=== PATIENT | male | born 1945 | race Caucasian/White ===

== ENCOUNTER 2019-07-12 08:50 | Inpatient (IN) | payer OTHER ==
[~2019-07-12] VITALS: Ht 177.8 cm; Wt 50.5 kg
[2019-07-12] VITALS (8 sets, daily range): BP systolic 109–156; BP diastolic 36–73
[~2019-07-12 08:50] MED LIST: ASPIRIN ADULT L81 M2 PO; ASPIRIN81 M1 PO; AZITHROMYCIN500 M1 IV; BUSPIRONE10 MG PO; CEFTRIAXONE1 GM IJ; CHOLESTEROL PILL; IMDUR SA30 MG PO; LASIX20 MG PO; LASIX40 MG PO; LISINOPRIL5 MG PO; LOPRESSOR25 MG PO; METOPROLOL TART50 M1 PO; MUCINEX ER600 MG PO; NEURONTIN300 MG PO; SOLU-MEDRO40 MG/1 ML IV; TRAZODONE50 MG PO; VITAMIN D32000 UNI1 PO; ZOCOR40 MG PO; [UNRECOGNIZED DRUG - REMARK]
[2019-07-12 09:19] LABS: BASO % 0.3 % (0.0-1.0); EOS % 0.3 % (1.0-4.0); HEMATOCRIT 45.8 % (42.0-52.0); LYMPH # 0.8 10*3/uL (1.3-4.4); LYMPH % 5.2 % (27.0-41.0); MEAN CELL VOLUME 95.4 fl (80.0-94.0); MEAN CORPUSCULAR HGB 30.2 pg (27.0-31.0); MEAN CORPUSCULAR HGB CONC 31.7 g/dl (33.0-37.0); MEAN PLATELET VOLUME 10.1 fl (9.6-12.3); MONO # 1.4 10*3/uL (0.1-1.0); MONO % 9.6 % (3.0-9.0); NEUT # 12.5 10*3/uL (2.3-7.9); NEUT % 84.1 % (47.0-73.0); PLATELET COUNT AUTOMATED 259 10*3/uL (130-400); WHITE BLOOD COUNT 14.9 10*3/uL (4.8-10.8)
[2019-07-12 09:27] LABS: ACT PARTIAL THROMBO TIME 31.3 SECONDS (20.0-32.1); INTERNATIONAL NORM RATIO 1.1 (2.0-3.5)
[2019-07-12 09:34] LABS: ALBUMIN 2.7 gm/dl (3.1-4.5); ALKALINE PHOSPHATASE 66 U/L (45-117); BUN 23 mg/dl (7-24); CHLORIDE 102 mmol/L (98-107); CREATININE 1.36 mg/dL (0.70-1.30); POTASSIUM 4.5 mmol/L (3.5-5.1); SGOT/AST 18 IU/L (3-35); SGPT/ALT 22 U/L (12-78); SODIUM 138 mmol/L (136-145); TOTAL PROTEIN 7.1 gm/dL (6.4-8.2)
--- NOTE | 2019-07-12 10:08 | NUR ---
SITTING TRIPOD POSITION IN BED, PLEASANT AND NO NEW COMPLAINTS.
--- NOTE | 2019-07-12 10:28 | NUR ---
LYIING RT LATERALM IN BED, LIGHTS DIMMED, REPS EASY.
--- NOTE | 2019-07-12 12:00 | NUR ---
The assessment has been completed. SUMA ONEILL Time: A 73 year old ,GIO admitted to under services of LAURENT ARMIJO DO. Pt. arrived via ambulatory from ER. Chief complaint: INCREASING SHORTNESS OF BREATH OVER LAST SEVERAL DAYS. SUMA ONEILL
--- NOTE | 2019-07-12 12:15 | NUR ---
DR WHEELER NOTIFIED OF CRITICAL TROPONIN.
--- NOTE | 2019-07-12 12:48 | NUR ---
PER DR WHEELER STOP IV FLUIDS AT THIS TIME.
--- NOTE | 2019-07-12 14:47 | NUR ---
PT SITTING UP IN BED. PAMELA HOSE APPLIED TO L LEG. RESPS EASY AND NON LABORED AT THIS TIME. NO S/S OF DISTRESS. PT STILL LEANING ON TRAY TABLE BUT STATES THAT HE DOESNT FEEL SOB LIKE EARLIER. WILL CONTINUE TO MONITOR. CALL LIGHT WITHIN REACH.
--- NOTE | 2019-07-12 15:02 | NUR ---
DR WHEELER NOTIFIED OF TROPONIN OF 0.119
--- NOTE | 2019-07-12 15:50 | NUR ---
PT INSTRUCTED ON FLUTTER USE. GOOD PATIENT EFFORT. LEFT AT BEDSIDE, ENCOURAGED PATIENT TO USE ON HIS OWN. BBS CLEAR BUT VERY DIMINISHED, HR 74 RR 16. SPO2 99% ON 4.5L, DECREASED TO 3 L.
--- NOTE | 2019-07-12 15:54 | NUR ---
DR WHEELER IN TO SEE PT
--- NOTE | 2019-07-12 16:46 | NUR ---
DR FLORENCE NOTIFIED OF NEW CONSULT. STATES HE WILL CALL BACK ONCE HE SEES PTS CT
--- NOTE | 2019-07-12 17:00 | NUR ---
PER DR FLORENCE PT NEEDS MOVED TO A NEGATIVE PRESSURE ROOM, COVID-19 SWAB NEEDS PREFORMED, ADD FERRITIN/LDH AND D DIMER TO LABS AND CALL WITH RESULTS. ORDERS VERIFIED AND REPEATED BACK.
--- NOTE | 2019-07-12 18:05 | NUR ---
DR FLORENCE NOTIFIED OF LAB RESULTS.
--- NOTE | 2019-07-12 19:32 | NUR ---
PT. ANXIOUS, STATING HE HASNT SEEN A NURSE IN OVER 30MINUTES. STATED HE NEEDS THINGS. ADDRESSED PATIENTS CONCERNS AND EXPLAINED THE COVID ISOLATION WELL CHANGE OF SHIFT FOR NURSES. PT. CALMED. WALKER SUPPLIED PER PT REQUEST. HEP LOCK IN MANDY ASYMPT. LUNGS DIMINISHED BILAT, PULSE OX 95% ON 2L NC. ABDOMEN SOFAT, NONDISTENDED AND NROMO. 3-4+LEFT LOWER LEG EDEMA NOTED. PAMELA HOSE ON LEFT LEG. ALEXANDER CASTRO RN
--- NOTE | 2019-07-12 21:11 | NUR ---
PT. GIVEN NORCO AT 2044 FOR AGGITATION AND GENERALIZED ACHES AND PAINS.
--- NOTE | 2019-07-12 21:15 | NUR ---
PT. STATES SHORTNESS OF BREATH, PULSE OX 98% ON 2L NC. CALLED RESP FOR PRN BREATHING TREATMENT. NO DISTRESS NOTED.
--- NOTE | 2019-07-12 21:56 | NUR ---
PT. STATED NORCO MILDLY EFFECTIVE FOR ACHES AND PAINS.
[2019-07-13] VITALS: BP 130/50
--- NOTE | 2019-07-13 01:29 | NUR ---
NORCO ADMINISTERED FOR GENERALIZED DISCOMFORT/ANXIETY. WILL MONITOR AND REASSESS.
--- NOTE | 2019-07-13 02:03 | NUR ---
PATIENT ASLEEP AT THIS TIME. NO SIGNS OF DISCOMFORT OR DISTRESS.
[2019-07-13 06:52] LABS: BUN 29 mg/dl (7-24); CHLORIDE 100 mmol/L (98-107); CREATININE 1.37 mg/dL (0.70-1.30); POTASSIUM 4.7 mmol/L (3.5-5.1); SODIUM 137 mmol/L (136-145)
[2019-07-13 06:56] LABS: BASO % 0.3 % (0.0-1.0); EOS # 0.1 10*3/uL (0.0-0.4); EOS % 1.2 % (1.0-4.0); HEMATOCRIT 43.8 % (42.0-52.0); LYMPH # 1.3 10*3/uL (1.3-4.4); LYMPH % 10.9 % (27.0-41.0); MEAN CELL VOLUME 96.7 fl (80.0-94.0); MEAN CORPUSCULAR HGB 30.2 pg (27.0-31.0); MEAN CORPUSCULAR HGB CONC 31.3 g/dl (33.0-37.0); MEAN PLATELET VOLUME 10.5 fl (9.6-12.3); MONO # 1.5 10*3/uL (0.1-1.0); MONO % 12.8 % (3.0-9.0); NEUT # 8.6 10*3/uL (2.3-7.9); NEUT % 74.3 % (47.0-73.0); PLATELET COUNT AUTOMATED 240 10*3/uL (130-400); RED BLOOD COUNT 4.53 10*6/uL (4.50-5.90); RED CELL DISTRI WIDTH 12.1 % (0-14.5); WHITE BLOOD COUNT 11.6 10*3/uL (4.8-10.8)
[2019-07-13 08:00] VITALS: BP 110/51
--- NOTE | 2019-07-13 09:00 | NUR ---
Reimbursement Manager spoke to patient via phone. Patient states lives at home alone with his family checking in on him. There are 0 steps in the home. Physician: Dr. Juan Tsai Pharmacy: [facility] Home health services: none Patient's level of ADLs: INDEPENDENT Patient has working utilities: yes DME: wheelchair Follow-up physician's appointment after d/c: will be made by the hospitalist nurse director upon discharge Does patient want to access PORTAL?: no Discharge plan discussed with patient. He lives at home alone with his family checking in on him. He is independent in his ADLs and gets around in a wheelchair. Discussed home health care services and he is unsure of any home needs at this time. He states he does have trouble getting his groceries in at times. When asked if he has someone to help him. He states that he doesn't. When asked about his family. He states they are not able to help him. Discussed grocery delivery. He states that [facility] Tru[facility]illo is the only one that deliveries groceries and they are too expensive. 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 When medically stable he will be discharged to home. He states either his sister or his ex- will provide transportation on discharge. ANGY MELÉNDEZ
--- NOTE | 2019-07-13 10:53 | NUR ---
DR. FLROENCE WANTS TO CONTINUE CARDIAC MONITORING.
[2019-07-13 12:00] VITALS: BP 105/42
[2019-07-13 16:00] VITALS: BP 138/95
--- NOTE | 2019-07-13 19:32 | NUR ---
24 hour chart check complete.
--- NOTE | 2019-07-13 19:50 | NUR ---
PATIENT COMPLAINING OF SHORTNESS OF BREATH, IN TO ASSESS HIM AT THIS TIME. PULSE OX 92% ON 2L. PATIENT RESPIRATIONS 20. WHEEZES NOTED THROUGHOUT. ENCOURAGED PATIENT TO SLOW DOWN HIS BREATHING, IN THROUGH HIS NOSE AND OUT THROUGH HIS MOUTH. RESPIRATORY IN TO ADMINISTER BREATHING TREATMENT. PATIENT STATES THAT THIS "PROBABLY WON'T HELP". WILL CONTINUE TO MONITOR.
--- NOTE | 2019-07-13 19:59 | NUR ---
UNABLE TO ENTER PATIENTS ROOM UNTIL 2100 DUE TO ADMINISTRATION OF BREATHING TREATMENT. CHECKED ON PT VIA ANTEROOM AND HE IS NOW RESTING IN BED. RESPIRATIONS ARE MORE RELAXED. PATIENT APPEARS TO BE IN LESS DISTRESS. WILL MONITOR.
[2019-07-13 20:00] VITALS: BP 136/65
--- NOTE | 2019-07-13 21:24 | NUR ---
NORCO ADMINISTERED FOR PT C/O RIGHT SIDED RIBCAGE PAIN RATED 4/10. WILL CONTINUE TO MONITOR AND REASSESS.
--- NOTE | 2019-07-13 21:56 | NUR ---
IN TO REASSESS PATIENTS RESPIRATORY STATUS. PATIENTS PULSE OX IS 98% ON 2L AT THIS TIME AND HE STATES THAT HE FEELS "MUCH BETTER" AFTER THE BREATHING TREATMENT. PATIENT STATES THAT HE IS "FRUSTRATED BECAUSE HE FEELS LIKE NO ONE IS COMING IN TO CHECK ON HIM". HE ALSO STATES THAT "PATIENTS SHOULDN'T BE TREATED THIS WAY" AND THAT "ITS DEPRESSING". HE THINKS THAT WE "ARE IGNORING HIM". I SAT AND EXPLAINED TO THE PATIENT THAT HE IS IN PRECAUTIONS FOR COVID UNTIL HIS SWAB COMES BACK AND THAT WE ARE SUPPOSED TO BE IN THE ROOM MINIMALLY. I EXPLAINED THAT IF HE NEEDED ANYTHING THAT HE COULD USE HIS CALL LIGHT AND I WILL COME IN TO ASSIST HIM. HE WAS RECEPTIVE AND DISPLAYED UNDERSTANDING.
--- NOTE | 2019-07-13 22:24 | NUR ---
PT ASLEEP AT THIS TIME. NORCO APPEARS TO BE EFFECTIVE.
[2019-07-14] VITALS: BP 148/53
[2019-07-14 06:24] LABS: MEAN CELL VOLUME 95.6 fl (80.0-94.0); MEAN CORPUSCULAR HGB 29.8 pg (27.0-31.0); MEAN CORPUSCULAR HGB CONC 31.2 g/dl (33.0-37.0); MEAN PLATELET VOLUME 10.3 fl (9.6-12.3); PLATELET COUNT AUTOMATED 264 10*3/uL (130-400); RED BLOOD COUNT 4.29 10*6/uL (4.50-5.90); WHITE BLOOD COUNT 12.2 10*3/uL (4.8-10.8)
[2019-07-14 06:45] LABS: BUN 33 mg/dl (7-24); CHLORIDE 101 mmol/L (98-107); CREATININE 1.32 mg/dL (0.70-1.30); POTASSIUM 5.2 mmol/L (3.5-5.1); SODIUM 136 mmol/L (136-145)
[2019-07-14 06:58] LABS: TOTAL CELLS COUNTED 100 #CELLS
[2019-07-14 06:59] LABS: PLATELET SUFFICIENCY NORMAL (NORMAL); POLYCHROMASIA SLIGHT
--- NOTE | 2019-07-14 07:00 | NUR ---
REPORT RECEIVED FROM BLANCO SANTIZO. PT SITTING UP IN BED AT THIS TIME. O2 INTACT; NO SOB NOTED AT REST. NO COMPLAINTS VOICED AT THIS TIME. CALL LIGHT IN REACH
[2019-07-14 08:00] VITALS: BP 136/58
--- NOTE | 2019-07-14 08:44 | NUR ---
DR. HARVEY NOTIFIED OF PT REQUEST TO DISCONTINUE BLOOD SUGAR CHECKS PT IS NOT A DIABETIC. DR. HARVEY OKAYED ORDER TO DC.
--- NOTE | 2019-07-14 09:30 | NUR ---
REPORT GIVEN TO DR. FLORENCE, NOTIFIED OF PT REQUEST FOR ANXIETY MEDS. ORDER RECEIVED, AND INCREASED DOSE OF LASIX. NO OTHER ORDERS AT THIS TIME.
--- NOTE | 2019-07-14 09:44 | NUR ---
PER DR. FLORENCE AND DR. HARVEY PT PCR AND RAPID NEGATIVE, OKAY TO COME OUT OF ISOLATION
--- NOTE | 2019-07-14 09:55 | NUR ---
XANAX GIVEN PER ORDER FOR COMPLAINTS OF ANXIETY. WILL MONITOR
[2019-07-14 10:19] LABS: ABG BASE EXCESS 6.8 mmol/L (-2.0-2.0); ARTERIAL BLOOD GAS PH 7.402 (7.35-7.45)
--- NOTE | 2019-07-14 10:45 | NUR ---
PER PT, "THAT REALLY HELPED MY ANXIETY"
[2019-07-14 12:00] VITALS: BP 102/47
--- NOTE | 2019-07-14 12:56 | NUR ---
CONSULT CALLED TO DR. VINES OFFICE
--- NOTE | 2019-07-14 13:00 | NUR ---
DR. ELLIS IN TO SEE PT
--- NOTE | 2019-07-14 15:00 | NUR ---
PT SITTING ON SIDE OF BED, NO DISTRESS NOTED. CALL LIGHT IN REACH
[2019-07-14 16:00] VITALS: BP 122/56
--- NOTE | 2019-07-14 17:00 | NUR ---
PT LYING IN BED. NO COMPLAINTS VOICED.
--- NOTE | 2019-07-14 19:21 | NUR ---
24 HR chart check completed.
[2019-07-14 20:00] VITALS: BP 123/59
--- NOTE | 2019-07-14 22:04 | NUR ---
PRN XANAX GIVEN FOR PT COMPLAINTS OF ANXIETY. CALL LIGHT WITHIN REACH, WILL MONITOR
--- NOTE | 2019-07-14 23:04 | NUR ---
PRN XANAX APPEARS EFFECTIVE, PT SLEEPING
[2019-07-15] VITALS: BP 121/62
--- NOTE | 2019-07-15 01:40 | NUR ---
PATIENT SLEEPING, NO SIGNS OF DISTRESS. RESPIRATIONS EASY,NON LABORED. BED IN LOWEST POSITION,CALL LIGHT WITHIN REACH. WILL CONTINUE TO MONITOR.
[2019-07-15 06:20] LABS: HEMATOCRIT 38.8 % (42.0-52.0); MEAN CELL VOLUME 94.9 fl (80.0-94.0); MEAN CORPUSCULAR HGB 30.8 pg (27.0-31.0); MEAN CORPUSCULAR HGB CONC 32.5 g/dl (33.0-37.0); MEAN PLATELET VOLUME 10.2 fl (9.6-12.3); PLATELET COUNT AUTOMATED 279 10*3/uL (130-400); RED BLOOD COUNT 4.09 10*6/uL (4.50-5.90); WHITE BLOOD COUNT 12.5 10*3/uL (4.8-10.8)
[2019-07-15 06:47] LABS: BUN 32 mg/dl (7-24); CHLORIDE 98 mmol/L (98-107); CREATININE 1.34 mg/dL (0.70-1.30); SODIUM 137 mmol/L (136-145)
[2019-07-15 06:49] LABS: POTASSIUM 4.2 mmol/L (3.5-5.1)
[2019-07-15 06:54] LABS: TOTAL CELLS COUNTED 100 #CELLS
[2019-07-15 06:55] LABS: PLATELET SUFFICIENCY NORMAL (NORMAL)
[2019-07-15 08:00] VITALS: BP 123/60
--- NOTE | 2019-07-15 08:30 | NUR ---
Medical Secretary Teacher in to see patient. No new needs or request at this time. He denies any home needs. When medically stable he will be discharged to home.
--- NOTE | 2019-07-15 10:45 | NUR ---
Per multidisciplinary discharge planning meeting plan is to discharge patient to home tomorrow.
--- NOTE | 2019-07-15 11:30 | NUR ---
INFORMED CONSENT SIGNED FOR LEXISCAN STRESS TEST WITH DR. ELLIS. RESTING EKG LBBB WITH PAC'S. HR 86, BP 122/60. PULSE OX 98% ON 2L/NC AND BREATH SOUNDS CLEAR BUT DEMINISHED ON RIGHT SIDE. COMPLETED ONE MINUTE OF LEXISCAN PROTOCOL RECEIVING LEXISCAN 0.4MG OVER 10 SECONDS. RARE PVC'S NOTED WITH NONDIAGNOSTIC ST CHANGES. PT C/O SOB. LAST RECOVERY HR 75, BP 100/50. WAITING NUCLEAR SCANNING IN STABLE CONDITION.
[2019-07-15 12:00] VITALS: BP 108/47
[2019-07-15 16:00] VITALS: BP 115/55
--- NOTE | 2019-07-15 17:28 | NUR ---
PT IN RESTROOM HAVING DIFFICULTY WITH HIS PANTS, PT VISIBLE UPSET AND HEART RATE ELEVATED. [place] ASSISTED WITH PANTS AND HELPED TO BED, PRN XANAX GIVEN PER ORDER D/T AGGITATION
--- NOTE | 2019-07-15 17:50 | NUR ---
NOTIFIED OF ELEVATED HEART RATE AND FREQUENT PVCS. AND BLOOD PRESSURE OF 70/32/ PT C/O OF INCREASED SOB AND DIZZINESS
--- NOTE | 2019-07-15 18:15 | NUR ---
NOTIFIED OF NEW ONSET AFIB, HYPOTENSION AND HEART RATE. NEW ORDER TO TREAT HYPOTENSION WITH BOLUS AND CALL WITH BP RESULTS ONCE FINISHED, IF BP DOES NOT CORRECT AND HEART RATE REMAINS TACHY PT MAY NEED TRANSFERRED TO ICU.
--- NOTE | 2019-07-15 18:45 | NUR ---
NOTIFIED OF BP 90/50, SECOND BOLUS INFUSING. PT ALSO WISHES TO CHANGE CODE STATUS TO DNRCCA, PER SHE WILL DISCUSS WITH PT
[2019-07-15 19:10] LABS: BUN 32 mg/dl (7-24); CHLORIDE 101 mmol/L (98-107); POTASSIUM 4.2 mmol/L (3.5-5.1); SODIUM 139 mmol/L (136-145)
--- NOTE | 2019-07-15 19:16 | NUR ---
NOTIFIED OF UPDATE BP 110/52 HR 84 AFIB NNO CONTINUE TO MONITOR
[2019-07-15 19:17] VITALS: BP 110/52
--- NOTE | 2019-07-15 21:23 | NUR ---
PATIENT CONVERTED BACK TO NSR. DR. CASH NOTIFIED.
--- NOTE | 2019-07-15 21:40 | NUR ---
MEDICATED WITH TYLENOL FOR C/O PHANTOM PAIN.
--- NOTE | 2019-07-15 23:32 | NUR ---
PATIENT FEELING SOB, RESPIRATIONS 24. CALLED RESPIRATORY FOR PRN BREATHING TX.
--- NOTE | 2019-07-15 23:48 | NUR ---
PATIENT RECEIVING BREATHING TX.
--- NOTE | 2019-07-15 23:59 | NUR ---
PER DIGITAL ART DIRECTOR, PATIENT LOOKS TO BE IN AFIB. EKG ORDERED TO CONFIRM.
[2019-07-16] VITALS: BP 101/43
[2019-07-16 07:27] LABS: BUN 32 mg/dl (7-24); CHLORIDE 102 mmol/L (98-107); CREATININE 1.33 mg/dL (0.70-1.30); POTASSIUM 4.7 mmol/L (3.5-5.1); SODIUM 139 mmol/L (136-145)
[2019-07-16 07:29] LABS: BASO # 0.1 10*3/uL (0.0-0.1); BASO % 0.5 % (0.0-1.0); EOS # 0.2 10*3/uL (0.0-0.4); EOS % 2.2 % (1.0-4.0); HEMATOCRIT 37.3 % (42.0-52.0); LYMPH # 1.1 10*3/uL (1.3-4.4); LYMPH % 9.7 % (27.0-41.0); MEAN CELL VOLUME 97.1 fl (80.0-94.0); MEAN CORPUSCULAR HGB 29.7 pg (27.0-31.0); MEAN CORPUSCULAR HGB CONC 30.6 g/dl (33.0-37.0); MEAN PLATELET VOLUME 10.2 fl (9.6-12.3); MONO # 1.5 10*3/uL (0.1-1.0); MONO % 13.4 % (3.0-9.0); NEUT # 8.1 10*3/uL (2.3-7.9); NEUT % 73.6 % (47.0-73.0); PLATELET COUNT AUTOMATED 284 10*3/uL (130-400); RED BLOOD COUNT 3.84 10*6/uL (4.50-5.90); RED CELL DISTRI WIDTH 12.1 % (0-14.5)
--- NOTE | 2019-07-16 08:20 | NUR ---
Bobbin Disker in to see patient. Discussed physician follow up on discharge. He states he normally follows up with Dr. Tsai's office in [place] and sees the nurse practitioner. He lives on [address] and would like to follow with a physician that is closer to his home. Discussed the resident clinic and those would be some of the same physicians that see him while he is in the hospital. He is agreeable. He states when he lived in [place] it wasn't a big deal then he would go to [facility] but since he has moved to [place] when he calls 911 they bring him here. Hospitalist nurse director notified. When medically stable he will be discharged to home.
[2019-07-16 08:23] LABS: PLATELET SUFFICIENCY NORMAL (NORMAL)
[2019-07-16 12:00] VITALS: BP 113/52
[2019-07-16 16:00] VITALS: BP 120/63
[2019-07-16 20:00] VITALS: BP 140/61
[2019-07-17] VITALS: BP 129/87
--- NOTE | 2019-07-17 03:53 | NUR ---
NOTIFIED DR. FELDMAN OF [address] OF [facility]. PATIENT ASYMPTOMATIC. WILL CONTINUE TO MONITOR.
[2019-07-17 04:19] LABS: HEMATOCRIT 37.8 % (42.0-52.0); MEAN CELL VOLUME 96.4 fl (80.0-94.0); MEAN CORPUSCULAR HGB 29.8 pg (27.0-31.0); MEAN PLATELET VOLUME 10.2 fl (9.6-12.3); PLATELET COUNT AUTOMATED 302 10*3/uL (130-400); RED BLOOD COUNT 3.92 10*6/uL (4.50-5.90); RED CELL DISTRI WIDTH 12.1 % (0-14.5); WHITE BLOOD COUNT 12.9 10*3/uL (4.8-10.8)
[2019-07-17 04:30] LABS: BUN 30 mg/dl (7-24); CHLORIDE 101 mmol/L (98-107); CREATININE 1.29 mg/dL (0.70-1.30); POTASSIUM 4.8 mmol/L (3.5-5.1); SODIUM 139 mmol/L (136-145)
[2019-07-17 04:41] LABS: TOTAL CELLS COUNTED 100 #CELLS
[2019-07-17 04:42] LABS: PLATELET SUFFICIENCY NORMAL (NORMAL)
[2019-07-17 05:10] VITALS: BP 133/54
--- NOTE | 2019-07-17 05:21 | NUR ---
PATIENT SLEEPING, NO SIGNS OF DISTRESS. RESPIRATIONS EASY, NON LABORED. WILL CONTINUE TO MONITOR.
--- NOTE | 2019-07-17 06:00 | NUR ---
PATIENT HAD 19 BEAT OF VTACH PER RAMP AND CARGO SUPERVISOR. NOTIFIED DR. FELDMAN.
--- NOTE | 2019-07-17 06:10 | NUR ---
DR. TAMEZ CALLED BACK. STATED TO CALL DR. ELLIS AND LET HIM KNOW.
--- NOTE | 2019-07-17 06:26 | NUR ---
SPOKE WITH DR. ELLIS. TOLD TO ORDER TROPOL XL BID INSTEAD OF DAILY AND GIVE FIRST DOSE NOW. STATED HE WOULD LOOK AT THE STRIPS WHEN HE GOT TO THE HOSPITAL. WILL CONTINUE TO MONITOR.
[2019-07-17 08:00] VITALS: BP 136/58
[2019-07-17 12:00] VITALS: BP 122/56
[2019-07-17 16:00] VITALS: BP 110/65
--- NOTE | 2019-07-17 19:20 | NUR ---
REPORT RECEIVED FROM PRISCILLA SANTIZO. PT SITTING ON SIDE OF BED AT THIS TIME. VOICES NO COMPLAINTS. O2 INTACT. CALL LIGHT IN REACH
[2019-07-17 20:00] VITALS: BP 144/50
--- NOTE | 2019-07-17 21:00 | NUR ---
PT SITTING ON SIDE OF BED AT THIS TIME. O2 INTACT. CALL LIGHT IN REACH
--- NOTE | 2019-07-17 22:11 | NUR ---
PT LYING IN BED WATCHING TV AT THIS TIME. CALL LIGHT IN REACH
--- NOTE | 2019-07-17 23:09 | NUR ---
TYLENOL GIVEN PER ORDER FOR COMPLAINTS OF LEFT LEG PAIN. WILL MONITOR.
--- NOTE | 2019-07-17 23:55 | NUR ---
TYLENOL APPEARS EFFECTIVE, PT SLEEPING
[2019-07-18] VITALS: BP 119/67
--- NOTE | 2019-07-18 02:00 | NUR ---
PT IS SLEEPING AT THIS TIME. CALL LIGHT IN REACH
[2019-07-18 06:13] LABS: HEMATOCRIT 37.7 % (42.0-52.0); MEAN CELL VOLUME 94.7 fl (80.0-94.0); MEAN CORPUSCULAR HGB 29.9 pg (27.0-31.0); MEAN CORPUSCULAR HGB CONC 31.6 g/dl (33.0-37.0); MEAN PLATELET VOLUME 10.5 fl (9.6-12.3); PLATELET COUNT AUTOMATED 328 10*3/uL (130-400); RED BLOOD COUNT 3.98 10*6/uL (4.50-5.90); RED CELL DISTRI WIDTH 11.9 % (0-14.5); WHITE BLOOD COUNT 12.5 10*3/uL (4.8-10.8)
[2019-07-18 06:45] LABS: ALBUMIN 2.2 gm/dl (3.1-4.5); ALKALINE PHOSPHATASE 54 U/L (45-117); BUN 26 mg/dl (7-24); CHLORIDE 99 mmol/L (98-107); CREATININE 1.21 mg/dL (0.70-1.30); POTASSIUM 4.1 mmol/L (3.5-5.1); SGOT/AST 52 IU/L (3-35); SGPT/ALT 83 U/L (12-78); SODIUM 135 mmol/L (136-145); TOTAL PROTEIN 6.4 gm/dL (6.4-8.2)
[2019-07-18 07:10] LABS: TOTAL CELLS COUNTED 100 #CELLS
[2019-07-18 07:11] LABS: PLATELET SUFFICIENCY NORMAL (NORMAL)
--- NOTE | 2019-07-18 08:00 | NUR ---
IN TO ROOM. PATIENT AWAKE, ALERT AND ORIENTED. PLEASANT AND COOPERATIVE WITH ASSESSMENT. NO STATED COMPLAINTS. NO SOB NOTED ON 3.5L NC. BED IN LOWEST LOCKED POSITION AND CALL LIGHT WITHIN REACH. WILL CONTINUE TO MONITOR.
[2019-07-18 12:00] VITALS: BP 144/57
[2019-07-18] MEDS ORDERED: ALDACTONE25 MG PO (12:06)
[2019-07-18] MEDS ORDERED: ASPIRIN ADULT L81 M2 PO (12:06)
[2019-07-18] MEDS ORDERED: METOPROLOL SUCC25 M2 PO (12:06)
[2019-07-18] MEDS ORDERED: XARELTO15 M1 PO (12:06)
[2019-07-18] MEDS ORDERED: FUROSEMIDE40 MG PO (12:06)
--- NOTE | 2019-07-18 12:55 | NUR ---
HOME O2 ASSESSMENT: RA REST: SPO2 93% RA AMBULATION: SPO2 85% 2 L NC AMBULATION: SPO2 93% PT REQUIRES 2 L NC WITH AMBULATION BP 114/77 ANDREY 5 RR 20'S
--- NOTE | 2019-07-18 14:48 | NUR ---
WHILE TALKING TO PATIENT REGARDING DISCHARGE, HE VERBALIZED CONCERNS REGARDING GOING HOME, WHERE HE LIVES ALONE. PT STATES HE FEELS WEEK AND STILL VERY SHORT OF BREATH. DR. MARAVILLA CONTACTED AND DISCHARGE POSTPONED. MESSAGE SENT TO MATERIALS PLANNER REGARDING PLACEMENT. BED IN LOWEST LOCKED POSITION AND CALL LIGHT WITHIN REACH. WILL CONTINUE TO MONITOR.
[2019-07-18 16:00] VITALS: BP 148/70
--- NOTE | 2019-07-18 19:20 | NUR ---
REPORT RECEIVED FROM MARVA SANTIZO. PT SLEEPING AT THIS TIME. NO S/S OF DISTRESS, O2 INTACT. CALL LIGHT IN REACH
[2019-07-18 20:00] VITALS: BP 120/54
--- NOTE | 2019-07-18 22:52 | NUR ---
PT MEDICATED WITH XANAX PER ORDER FOR COMPLAINTS OF RESTLESSNESS/ANXIETY. WILL MONITOR EFFECTIVENESS.
--- NOTE | 2019-07-18 23:30 | NUR ---
XANAX APPEARS EFFECTIVE. PT SLEEPING
[2019-07-19] VITALS: BP 128/60
--- NOTE | 2019-07-19 00:49 | NUR ---
PT AWAKE AT THIS TIME. PT COMPLAINING THAT XANAX ISNT HELPING HIM STAY ASLEEP. PT WANTS SLEEPING PILL. CALLED DR. DE LA CRUZ REGARDING REQUEST. ORDER FOR RESTORIL RECEIVED.
--- NOTE | 2019-07-19 00:59 | NUR ---
RESTORIL GIVEN PER ORDER FOR COMPLAINTS OF INSOMNIA. WILL MONITOR
--- NOTE | 2019-07-19 01:45 | NUR ---
RESTORIL APPEARS EFFECTIVE. PT SLEEPING AT THIS TIME.
--- NOTE | 2019-07-19 05:04 | NUR ---
24 HR chart check completed.
--- NOTE | 2019-07-19 05:39 | NUR ---
IN TO SEE PT. REQUESTING BREATHING TREATMENT, RESPIRATORY NOTIFIED.
--- NOTE | 2019-07-19 08:30 | NUR ---
IN TO ROOM. PT STATES HE HAS AN UPSET STOMACH. QUESTIONED ABOUT SYMPTOMS AND PT REQUESTS SOMETHING FOR ACID REFLUX. DR. HARVEY NOTIFIED AND ORDERS OBTAINED AND ENTERED. NO OTHER STATED COMPLAINTS AT THIS TIME. DENIES PAIN. NO S/S OF DISTRESS OR SOB. NASAL CANNULA INTACT, RESPIRATIONS ARE EASY AND REGULAR. BED IN LOWEST LOCKED POSITION AND CALL LIGHT WITHIN REACH. WILL CONTINUE TO MONITOR.
--- NOTE | 2019-07-19 09:00 | NUR ---
Shop Assistant in to see patient. He is sitting on the edge of his bed without distress noted. Discussed over the weekend he was afraid to be discharged to home where he is alone. He agreed. Discussed short term rehab and he is agreeable. When provided with a list of facilities he just wanted to go with a facility that took his insurance. roundhouse worker notified and following.
--- NOTE | 2019-07-19 10:33 | NUR ---
PATIENT NOW WANTS SNF PLACEMENT. WIND [employer]JECTS SUPERVISOR FAXED NEW REFERRAL TO [facility].
[2019-07-19 12:00] VITALS: BP 128/37
--- NOTE | 2019-07-19 14:00 | NUR ---
Occupational Therapy evaluation completed on 4E with full evaluation to follow. Recommend occupational therapy per plan of care and SNF vs. home with HH pending pt progression upone discharge. Thank you for this referral. Chanda Ramos OTR/L
[2019-07-19 16:00] VITALS: BP 106/88
--- NOTE | 2019-07-19 19:30 | NUR ---
REPORT RECEIVED. PT WATCHING TV. CALL LIGHT IN REACH
[2019-07-19 20:00] VITALS: BP 115/46
--- NOTE | 2019-07-19 20:49 | NUR ---
PT MEDICATED WITH XANAX FOR COMPLAINTS OF ANXIETY. WILL MONITOR EFFECTIVENESS
--- NOTE | 2019-07-19 21:30 | NUR ---
XANAX APPEARS EFFECTIVE, PT SLEEPING AT THIS TIME.
[2019-07-20] VITALS: BP 112/52
--- NOTE | 2019-07-20 02:11 | NUR ---
TYLENOL GIVEN PER ORDER FOR COMPLAINTS OF LEFT LEG PAIN. WILL MONITOR
--- NOTE | 2019-07-20 03:00 | NUR ---
TYLENOL APPEARS EFFECTIVE, PT SLEEPING.
[2019-07-20 05:45] LABS: BUN 33 mg/dl (7-24); CHLORIDE 96 mmol/L (98-107); CREATININE 1.33 mg/dL (0.70-1.30); POTASSIUM 4.4 mmol/L (3.5-5.1); SODIUM 134 mmol/L (136-145)
[2019-07-20 06:04] LABS: HEMATOCRIT 38.5 % (42.0-52.0); MEAN CELL VOLUME 94.8 fl (80.0-94.0); MEAN CORPUSCULAR HGB 29.8 pg (27.0-31.0); MEAN CORPUSCULAR HGB CONC 31.4 g/dl (33.0-37.0); MEAN PLATELET VOLUME 10.6 fl (9.6-12.3); PLATELET COUNT AUTOMATED 353 10*3/uL (130-400); RED BLOOD COUNT 4.06 10*6/uL (4.50-5.90); RED CELL DISTRI WIDTH 11.9 % (0-14.5); WHITE BLOOD COUNT 13.2 10*3/uL (4.8-10.8)
[2019-07-20 06:36] LABS: BASOPHILS 1 % (0-1); TOTAL CELLS COUNTED 100 #CELLS
[2019-07-20 06:37] LABS: PLATELET SUFFICIENCY NORMAL (NORMAL); POLYCHROMASIA SLIGHT; STOMATOCYTE FEW
[2019-07-20 06:38] LABS: TOXIC GRANULATION SLIGHT
[2019-07-20 08:00] VITALS: BP 122/64
--- NOTE | 2019-07-20 09:00 | NUR ---
Computer Typesetter Keyliner in to see patient. No new needs or request at this time. sheetmetal worker following for SNF referrals.
--- NOTE | 2019-07-20 10:00 | NUR ---
PATIENT RESTING IN BED A TTHIS TIME. ON O2 @ 2L VIA NC. LUNGS VERY DIMINISHED. EDEMA NOTED TO THE LLE, 2+ PITTING. DENIES ANY NEEDS AT THIS TIME, ENCOURAGED TO USE CALL LIGHT WHEN NEEDED.
--- NOTE | 2019-07-20 11:26 | NUR ---
NEED PT EVAL TO COMPLETE REFERRAL AND TO START PRECERT. [facility] EMAIL SENT THIS MORNING 07/20/2019.
[2019-07-20 12:00] VITALS: BP 117/56
--- NOTE | 2019-07-20 12:44 | NUR ---
Physical Therapy evaluation completed on 4th floor with full evaluation to follow. Recommend physical therapy per plan of care and SNF upon discharge as pt live alone with no family to assist him. Pt is now wearing 2L 02 NC which is new to him. Decreased tolerance to activity requiring assist to manipulate 02 line for safety. 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 Thank you for this referral. Ratna Joel PT
--- NOTE | 2019-07-20 13:10 | NUR ---
GRIEF COUNSELLOR FAXED EVALS AND UPDATES TO [facility]. [facility] IS STILL REVIEWING CLINICALS.
--- NOTE | 2019-07-20 13:46 | NUR ---
OT NOTE Pt was seen this P.M. 1:1 for 26 minute OT session. Upon arrival pt was supine in bed. Pt identified by name and and had no complaints at this time. Pt presented to therapy with continuous 2L-O2 via NC which he remained on throughout the entire session. Pt's resting SpO2 94% and heart rate 70 bpm. Pt transferred supine to sit EOB with supervision. While sitting EOB pt donned L sock with supervision. Pt completed multiple sit to stand transfers from bed level with SBA for safety and use of w/w for UE support. Challenged pt's static standing tolerance needed for increased I in self care tasks and functional transfers, pt was able to tolerate aprox 4 minutes before sitting due to fatigue and feeling SOB, SpO2 reading 92%. After a seated rest break pt then completed functional mobility to the bathroom with Liz for assist with O2 line management/safety. Pt was educated on O2 line management and safety as this is new to the pt, he verbalized understanding and presented with fair carry over. Once arriving to the bathroom pt required a seated rest break due to fatigue and feeling SOB, SpO2 90% and heart rate 81 bpm. There pt was educated on energy conservation and breathing techniques for enhanced safety and increased I. After returning to the EOB pt sat while completing grooming task consisting of washing his face and completing oral care after set up. Pt was left sitting upright on the EOB with call light in hand, tray table in place, and phone in reach. Continue with POC as able. IMTIAZ Renteria
[2019-07-20 16:00] VITALS: BP 112/49
--- NOTE | 2019-07-20 19:30 | NUR ---
REPORT RECEIVED FROM VINEET SANTIZO. PT LYING IN BED AT THIS TIME. VOICES NO COMPLAINTS, CALL LIGHT IN REACH
[2019-07-20 20:00] VITALS: BP 112/48
--- NOTE | 2019-07-20 21:36 | NUR ---
XANAX GIVEN FOR COMPLAINTS OF ANXIETY. TYLENOL ALSO GIVEN FOR COMPLAINTS OF LEFT LEG PAIN. WILL MONITOR EFFECTIVENESS OF THESE MEDICATIONS
--- NOTE | 2019-07-20 22:25 | NUR ---
TYLENOL AND XANAX APPEAR EFFECTIVE. PT SLEEPING AT THIS TIME. O2 INTACT. CALL LIGHT IN REACH
[2019-07-21] VITALS: BP 147/56
--- NOTE | 2019-07-21 00:30 | NUR ---
PT SLEEPING AT THIS TIME. O2 INTACT
--- NOTE | 2019-07-21 05:37 | NUR ---
TYLENOL GIVEN PER ORDER FOR COMPLAINTS OF LOWER BACK PAIN. WILL MONITOR EFFECTIVENESS
[2019-07-21 06:08] LABS: HEMATOCRIT 40.4 % (42.0-52.0); MEAN CELL VOLUME 96.2 fl (80.0-94.0); MEAN CORPUSCULAR HGB 29.5 pg (27.0-31.0); MEAN CORPUSCULAR HGB CONC 30.7 g/dl (33.0-37.0); MEAN PLATELET VOLUME 10.7 fl (9.6-12.3); PLATELET COUNT AUTOMATED 371 10*3/uL (130-400); RED CELL DISTRI WIDTH 11.9 % (0-14.5); WHITE BLOOD COUNT 13.6 10*3/uL (4.8-10.8)
[2019-07-21 06:10] LABS: BUN 36 mg/dl (7-24); CHLORIDE 96 mmol/L (98-107); CREATININE 1.26 mg/dL (0.70-1.30); POTASSIUM 3.9 mmol/L (3.5-5.1); SODIUM 135 mmol/L (136-145)
--- NOTE | 2019-07-21 06:30 | NUR ---
TYLENOL APPEARS EFFECTIVE, PT SLEEPING
[2019-07-21 07:13] LABS: PLATELET SUFFICIENCY NORMAL (NORMAL); TOTAL CELLS COUNTED 100 #CELLS
--- NOTE | 2019-07-21 08:05 | NUR ---
[facility]ERT FOR [facility] HAS BEEN STARTED.
--- NOTE | 2019-07-21 08:46 | NUR ---
PRECERT HAS BEEN OBTAINED FOR PATIENT TO GO TO [facility]. WILL NOTIFY RN HOSPITALIST COORDINATOR LEEANNA AND MASON TENDER RESTORATION LABOR.
--- NOTE | 2019-07-21 09:00 | NUR ---
MEDICATED WITH PRN PO XANAX FOR ANXIETY.
--- NOTE | 2019-07-21 09:15 | NUR ---
PHYSICAL THERAPY Patient seen this am 1;1 for therapy vist and was resting supine in bed upon therapist arrival. Patient identified by name / and presented with continuos O2-2L via NC. Patient recorded SpO2 96%, HR 70 bpm prior to tranfer supine to sit EOB with CGA. Patient perfomred several sit to stand transfers with use of walker standing support secondary to R side AKA. Patient reports non use of R Prothesis at home due to prper fit issues and limited financial means to remedy the situation. Patient able to ambulate 15'x 2, wh walker, CGA, demonstrating 3 pt gait pattern with use of extended O2 hose. Patient needed v/c to to improve safe navigaiton to avoid stepping on, getting tangled up in or tripping on hose during gait ex and returned to EOB sit with increased SOB / fatigue. Patient received v/c for purse lip breathing technique recording SpO2 88%, HR 97 bpm. Patient returned to WFL's after brief seated rest and remained EOB sit with call light, tray table and telephone. Will continue per POC as tolerated, total treatment time 14 minutes. Elvin Ramachandran, FISHERIES BIOLOGIST
--- NOTE | 2019-07-21 09:21 | NUR ---
TURN SUPERVISOR COMPLETED HENS
--- NOTE | 2019-07-21 09:23 | NUR ---
Notified Dr. Walton patient has auth to go to [facility] when medically stable.
--- NOTE | 2019-07-21 09:40 | NUR ---
OT NOTE Pt was seen this A.M. 1:1 for 25 minute OT session. Upon arrival pt was supine in bed. Pt identified by name and and had no complaints at this time. Pt presented to therapy with continuous 2L-O2 via NC which he remained on throughout the entire session. Pt's resting SpO2 was 96% and heart rate 78 bpm. Pt transferred supine to sit EOB with supervision. Sit to stand completed from bed level with SBA followed by functional mobility to the bathroom and back with SBA, this session pt presented with fair safety of O2 line management. After returning to the EOB pt's SpO2 reading 88% and heart rate 103 bpm. Pt was educated on breathing techniques and correcting his posture, after aprox 60 seconds SpO2 raised to 93% and heart rate 92 bpm. Challenged pt's static standing tolerance needed for increased I in self care tasks and functional transfers, pt was able to tolerate aprox 5 minutes at a time before sitting due to fatigue. Also challenged pt's dynamic standing balance while weight shifting, crossing midline, and reaching over all planes and pt was able to maintain F- standing balance. Pt was left sitting upright on the EOB with call light in hand, tray table in place, and phone in reach. Continue with POC as able. ATILIO Renteria/Vida
[2019-07-21] MEDS ORDERED: OMEPRAZOLE40 MG PO (10:28)
[2019-07-21 12:00] VITALS: BP 137/61
--- NOTE | 2019-07-21 12:50 | NUR ---
LINING MECHANIC SPOKE WITH DARLYN WELLS ABOUT PATIENT DISCHARGE. LINING MECHANIC SPOKE WITH [facility]. THEY ARE ABLE TO TRANSPORT THE PATIENT TODAY BETWEEN 3:30 AND 4PM. LINING MECHANIC NOTIFIED DARLYN WELLS OF THIS. LINING MECHANIC SPOKE WITH THE PATIENT AND EXPLAINED THIS TO HIM. THE PATIENT PROVIDED A NEW NUMBER FOR [facility] [phone]. LINING MECHANIC LEFT MESSAGE EXPLAINING PATIENTS DISCHARGE AND RETURN CALL NUMBER IF NEEDED.
--- NOTE | 2019-07-21 13:09 | NUR ---
PREPARING PATIENT FOR DISCHARGE TO [facility] BY THEIR TRANSPORT SERVICE AT 3:30PM TODAY. Discharge instructions reviewed with patient. Patient receptive and verbalizes understanding. Follow-up care arranged. Written instructions given to patient. PRISCILLA ZHU
[2019-07-21 16:00] VITALS: BP 131/80
--- NOTE | 2019-07-21 16:23 | NUR ---
REPORT CALLED TO RECEIVING NURSE AT [facility]. PATIENT AWAITING TRANSPORT TO THE FACILITY, WHO WILL RECEIVE HIM AT THE ER ENTRANCE FOR VAN TRANSPORTATION.
--- NOTE | 2019-07-21 16:50 | NUR ---
PATIENT DISCHARGED TO FRONT ER LOBBY BY WHEELCHAIR, ACCOMPANIED BY [facility], FOR TRANSPORT TO [facility] AT THIS TIME.
--- NOTE | 2019-07-22 07:41 | NUR ---
OCCUPATIONAL THERAPY CO-SIGN I approve of the Occupational Therapy notes written above. JACOBO ROBIN, OTR/L
--- NOTE | 2019-07-22 08:06 | NUR ---
PHYSICAL THERAPY CO-SIGN I approve of the Physical Therapy notes written above. Ratna Joel PT
== END 2019-07-21 16:50 | disposition other institution (70) | DRG 871 ==
LOC: ED 08:50 → 4E 11:16 → EDHOLD 11:16 → 4E 11:21
PROVIDERS: Emergency Medicine; Internal Medicine; Internal Medicine Critical Care Medicine; Student in an Organized Health Care Education/Training Program; ADMIT Family Medicine
DX: A41.9 Sepsis, unspecified organism (principal); E43 Unspecified severe protein-calorie malnutrition; I50.23 Acute on chronic systolic (congestive) heart failure; I26.99 Other pulmonary embolism without acute cor pulmonale; J18.9 Pneumonia, unspecified organism; I13.0 Hypertensive heart and chronic kidney disease with heart failure and stage 1 through stage 4 chronic kidney disease, or unspecified chronic kidney disease; Z68.1 Body mass index [BMI] 19.9 or less, adult; I42.9 Cardiomyopathy, unspecified; I47.2 Ventricular tachycardia; J43.9 Emphysema, unspecified; Z20.828 Contact with and (suspected) exposure to other viral communicable diseases; R65.20 Severe sepsis without septic shock; N18.3 Chronic kidney disease, stage 3 (moderate); R79.89 Other specified abnormal findings of blood chemistry; F17.210 Nicotine dependence, cigarettes, uncomplicated; D75.89 Other specified diseases of blood and blood-forming organs; E83.41 Hypermagnesemia; E78.5 Hyperlipidemia, unspecified; I73.9 Peripheral vascular disease, unspecified; R91.8 Other nonspecific abnormal finding of lung field; I48.0 Paroxysmal atrial fibrillation; K21.9 Gastro-esophageal reflux disease without esophagitis; Z71.6 Tobacco abuse counseling; I25.2 Old myocardial infarction; Z95.5 Presence of coronary angioplasty implant and graft; Z82.0 Family history of epilepsy and other diseases of the nervous system; Z79.899 Other long term (current) drug therapy

== ENCOUNTER 2019-08-02 22:44 | Inpatient (IN) | payer OTHER ==
[~2019-08-02] VITALS: Ht 177.8 cm; Wt 53.2 kg
[~2019-08-02 22:44] MED LIST changes: +ALDACTONE25 MG PO; +FUROSEMIDE40 MG PO; +METOPROLOL SUCC25 M2 PO; +OMEPRAZOLE40 MG PO; +XARELTO15 M1 PO
[2019-08-02 22:49] VITALS: BP 160/48
--- NOTE | 2019-08-02 23:08 | NUR ---
PLACED ON BIPAP 18/6, 24, 35%, VT 900, SpO2 96% PER DR. MOHAN ORDER. 9ML DUONEB TREATMENT GIVEN THROUGH T-PIECE.
[2019-08-02 23:20] LABS: HEMATOCRIT 35.8 % (42.0-52.0); MEAN CELL VOLUME 97.5 fl (80.0-94.0); MEAN CORPUSCULAR HGB 30.2 pg (27.0-31.0); MEAN PLATELET VOLUME 10.2 fl (9.6-12.3); PLATELET COUNT AUTOMATED 373 10*3/uL (130-400); RED BLOOD COUNT 3.67 10*6/uL (4.50-5.90); RED CELL DISTRI WIDTH 12.3 % (0-14.5); WHITE BLOOD COUNT 14.7 10*3/uL (4.8-10.8)
[2019-08-02 23:29] VITALS: BP 115/56
[2019-08-02 23:29] LABS: INTERNATIONAL NORM RATIO 1.1 (2.0-3.5)
[2019-08-02 23:36] LABS: ALBUMIN 2.5 gm/dl (3.1-4.5); CREATININE 1.63 mg/dL (0.70-1.30); POTASSIUM 4.9 mmol/L (3.5-5.1); TOTAL PROTEIN 7.2 gm/dL (6.4-8.2)
[2019-08-02 23:37] LABS: TROPONIN I 0.139 ng/ml (<0.045)
[2019-08-02 23:41] LABS: PLATELET SUFFICIENCY NORMAL (NORMAL); TOTAL CELLS COUNTED 100 #CELLS
[2019-08-03] VITALS (8 sets, daily range): BP systolic 107–166; BP diastolic 59–71
[2019-08-03 01:09] LABS: ABG BASE EXCESS 10.2 mmol/L (-2.0-2.0); ARTERIAL BLOOD GAS PH 7.372 (7.35-7.45)
--- NOTE | 2019-08-03 02:00 | NUR ---
A 73, admitted to , under the services of ANI Bateman DO with a diagnosis of RESP FAILURE, HYPOXIA, COPD EXACERBATION. Chief complaint is SOB. Patient arrived via ambulance from ER. Monitor applied. Initial assessment completed. Vital signs taken and recorded. ANI BATEMAN DO notified of admission to the unit. Orders received. See assessment for past medical history, medications and allergies. Patient and/or family oriented to unit. [facility] visitation policy reviewed. Clothing/patient valuable form completed. JERSEY VALENTIN
[2019-08-03] MEDS ORDERED: LASIX20 MG PO (02:20)
[2019-08-03] MEDS ORDERED: NEURONTIN300 MG PO (02:22)
[2019-08-03] MEDS ORDERED: MIRTAZAPINE15 M2 PO (02:22)
[2019-08-03] MEDS ORDERED: Ipratropium Brom3 ML INH (02:24)
[2019-08-03] MEDS ORDERED: WIXELA 250-501 EACH INH (02:25)
[2019-08-03] MEDS ORDERED: COLACE100 MG PO (02:27)
[2019-08-03] MEDS ORDERED: OMNICEF300 MG PO (02:28)
--- NOTE | 2019-08-03 02:39 | NUR ---
DR. MITCHELL NOTIFIED OF PT'S MED REC UTD AND T.O. GIVEN TO CONTINUE BIPAP 28/07.
--- NOTE | 2019-08-03 04:39 | NUR ---
PT TAKEN OFF OF BIPAP PER HIS REQUEST AND O2 APPLIED.
[2019-08-03 05:45] LABS: ALBUMIN 2.3 gm/dl (3.1-4.5); CREATININE 1.58 mg/dL (0.70-1.30); POTASSIUM 4.2 mmol/L (3.5-5.1); TOTAL PROTEIN 6.8 gm/dL (6.4-8.2)
[2019-08-03 05:50] LABS: TROPONIN I 0.132 ng/ml (<0.045)
--- NOTE | 2019-08-03 05:53 | NUR ---
DR. MITCHELL NOTIFIED OF CRITICAL TROPONIN.
--- NOTE | 2019-08-03 05:56 | NUR ---
Dr. FLORENCE consulted for COPD EXACERBATION, BIPAP, ACUTE ON CHRONIC RESP FAILURE.. JERSEY VALENTIN
[2019-08-03 06:11] LABS: HEMATOCRIT 34.7 % (42.0-52.0); MEAN CELL VOLUME 96.4 fl (80.0-94.0); MEAN CORPUSCULAR HGB 29.4 pg (27.0-31.0); MEAN CORPUSCULAR HGB CONC 30.5 g/dl (33.0-37.0); WHITE BLOOD COUNT 15.9 10*3/uL (4.8-10.8)
[2019-08-03 06:12] LABS: MEAN PLATELET VOLUME 10.6 fl (9.6-12.3); PLATELET COUNT AUTOMATED 367 10*3/uL (130-400); RED CELL DISTRI WIDTH 12.3 % (0-14.5)
[2019-08-03 06:40] LABS: PLATELET SUFFICIENCY NORMAL (NORMAL); POLYCHROMASIA SLIGHT; TOTAL CELLS COUNTED 100 #CELLS; TOXIC GRANULATION SLIGHT
--- NOTE | 2019-08-03 08:47 | NUR ---
PATIENT PRESENTS FROM [facility]. PATIENT ONLY HAS 8 FULL SNF DAYS LEFT THEN WILL BE INTO HIS COPAY DAYS. PER ABIGAIL-[facility] PATIENT WANTED TO BE HOME WITHIN THAT TIME FRAME. IF PATIENT WERE TO DISCHARGE HOME INSTEAD OF RETURNING TO [facility], ABIGAIL STATED THE PATIENT WILL NEED OXYGEN, NEBULIZER, AND HHC. WILL NOTIFY THE SECRETARY BOARD OF COMMISSIONERS.
--- NOTE | 2019-08-03 11:19 | NUR ---
Program Engagement Director in to see patient. Discussed returning to [facility] for continued therapy or to return home with home health care. Patient states he would like to return to [facility]. powder worker and hospitalist nurse director notified.
--- NOTE | 2019-08-03 11:30 | NUR ---
RESPIRATORY TO THE FLOOR TO DRAW ABG.
[2019-08-03 11:49] LABS: ABG BASE EXCESS 9.5 mmol/L (-2.0-2.0); ARTERIAL BLOOD GAS PH 7.396 (7.35-7.45)
--- NOTE | 2019-08-03 13:20 | NUR ---
DR. FLORENCE NOTIFIED OF ABG RESULT.
--- NOTE | 2019-08-03 20:00 | NUR ---
PATIENT IS AAOX3 RESTING IN BED WATCHING TV. RESPERS ARE EASY AND REGULAR. ASSESSMENT IS COMPLETE WITH NO S/S OF DISTRESS NOTED AT THIS TIME. PATIENT C/O ANXIETY. BED IS LOW, LOCKED, AND CALL LIGHT IS WITHIN REACH. WILL CONTINUE TO MONITOR, SEE INTERVENTIONS.
--- NOTE | 2019-08-03 20:07 | NUR ---
ONE TIME DOSE OF ATIVAN GIVEN ORDERED. PATIENT TOLERATED WELL. CALL LIGHT IS WITHIN REACH, WILL CONTINUE TO MONITOR.
--- NOTE | 2019-08-03 20:20 | NUR ---
PATIENT DYSPNIC AT REST. HS MEDICATIONS GIVEN EARLY AND PLACED ON BIPAP PER ORDER. CALL LIGHT IS WITHIN REACH. WILL CONTINUE TO MONITOR.
--- NOTE | 2019-08-03 21:07 | NUR ---
ATIVAN EFFECTIVE. PATIENT IS SLEEPING WITH EASY AND REGULAR RESPERS ON BIPAP. CALL LIGHT IS WITHIN REACH.
--- NOTE | 2019-08-03 23:00 | NUR ---
PATIENT OFF BIPAP, NASAL CANNULA APPLIED. CALL LIGHT IS WITHIN REACH.
[2019-08-04] VITALS: BP 159/70
--- NOTE | 2019-08-04 02:54 | NUR ---
CHART CHECK COMPLETE.
--- NOTE | 2019-08-04 04:06 | NUR ---
PATIENT SLEEPING WITH EASY AND REGULAR RESPERS. CALL LIGHT IS WITHIN REACH.
[2019-08-04 06:23] LABS: BASO % 0.1 % (0.0-1.0); HEMATOCRIT 35.2 % (42.0-52.0); LYMPH # 0.7 10*3/uL (1.3-4.4); LYMPH % 4.2 % (27.0-41.0); MEAN CORPUSCULAR HGB 29.5 pg (27.0-31.0); MEAN CORPUSCULAR HGB CONC 30.4 g/dl (33.0-37.0); MONO # 1.3 10*3/uL (0.1-1.0); MONO % 8.5 % (3.0-9.0); NEUT # 13.4 10*3/uL (2.3-7.9); NEUT % 86.4 % (47.0-73.0); PLATELET COUNT AUTOMATED 362 10*3/uL (130-400); RED BLOOD COUNT 3.63 10*6/uL (4.50-5.90); RED CELL DISTRI WIDTH 12.5 % (0-14.5); WHITE BLOOD COUNT 15.5 10*3/uL (4.8-10.8)
[2019-08-04 06:56] LABS: CREATININE 1.45 mg/dL (0.70-1.30); POTASSIUM 4.6 mmol/L (3.5-5.1)
--- NOTE | 2019-08-04 08:15 | NUR ---
Patient Resource Coordinator in to see patient. No new needs or request at this time. He plans on returning to [facility] for finish out his therapy days. rack worker following.
--- NOTE | 2019-08-04 10:10 | NUR ---
PRECERT IS NEEDED FOR THE PATIENT TO RETURN TO [facility].
--- NOTE | 2019-08-04 11:14 | NUR ---
DR. GUTIÉRREZ INFORMED OF PATIENTS HR.
--- NOTE | 2019-08-04 11:17 | NUR ---
PT. OFF BIPAP PLACED ON 4L NC
[2019-08-04 12:00] VITALS: BP 133/74
--- NOTE | 2019-08-04 15:03 | NUR ---
REPORT RECIEVED FROM PREVIOUS RN.INITIAL NURSING ASSESSMENT COMPLETED.PT VOICES NO NEEDS.RESPS EASY ON 4LNC.RESTING IN BED WATCHING TV. NO DISTRESS NOTED. CALL LIGHT IN REACH.
[2019-08-04 16:00] VITALS: BP 142/70
--- NOTE | 2019-08-04 17:56 | NUR ---
NOTIFIED DR GUTIÉRREZ OF 9 BEAT RUN OF VT. NO NEW ORDERS. PT SLEEPING, NO DISTRESS NOTED.WILL CONTINUE TO MONITOR.
[2019-08-04 20:00] VITALS: BP 125/58
--- NOTE | 2019-08-04 20:30 | NUR ---
PATIENT IS AAOX3 RESTING IN BED WITH EASY AND REGULAR RESPERS. ASSESSMENT IS COMPLETE WITH NO C/O OR S/S OF DISTRESS NOTED AT THIS TIME. BED IS LOW, LOCKED, AND CALL LIGHT IS WITHIN REACH. WILL CONTINUE TO MONITOR, SEE INTERVENTION SCREEN.
[2019-08-05] VITALS: BP 136/62
--- NOTE | 2019-08-05 | NUR ---
PATIENT SLEEPING WITH EASY AND REGULAR RESPERS. CALL LIGHT IS WITHIN REACH.
--- NOTE | 2019-08-05 05:05 | NUR ---
PATIENT AWAKENS EASILY FOR ADMINISTRATION OF AM MEDICATIONS. TOLERATED WELL, CALL LIGHT IS WITHIN REACH.
[2019-08-05 06:16] LABS: BASO % 0.1 % (0.0-1.0); HEMATOCRIT 35.2 % (42.0-52.0); LYMPH # 0.6 10*3/uL (1.3-4.4); LYMPH % 3.4 % (27.0-41.0); MEAN CELL VOLUME 95.4 fl (80.0-94.0); MEAN CORPUSCULAR HGB 29.3 pg (27.0-31.0); MEAN CORPUSCULAR HGB CONC 30.7 g/dl (33.0-37.0); MEAN PLATELET VOLUME 10.6 fl (9.6-12.3); MONO # 1.3 10*3/uL (0.1-1.0); MONO % 7.4 % (3.0-9.0); NEUT # 15.1 10*3/uL (2.3-7.9); NEUT % 88.3 % (47.0-73.0); PLATELET COUNT AUTOMATED 362 10*3/uL (130-400); RED BLOOD COUNT 3.69 10*6/uL (4.50-5.90); RED CELL DISTRI WIDTH 12.5 % (0-14.5); WHITE BLOOD COUNT 17.1 10*3/uL (4.8-10.8)
[2019-08-05 06:26] LABS: CREATININE 1.54 mg/dL (0.70-1.30); POTASSIUM 4.6 mmol/L (3.5-5.1)
--- NOTE | 2019-08-05 07:23 | NUR ---
PRECERT IS REQUIRED FOR RETURN TO [facility]. UX RESEARCHER NOTIFIED RN HOSPITALIST COORDINATOR LEEANNA OF NEEDING PT/OT ORDERED TO BE ABLE TO OBTAIN PRECERT. UX RESEARCHER FAXED UPDATES TO [facility]. PATIENT WILL NEED COVID RESULTS BEFORE ADMITTING TO [facility].
--- NOTE | 2019-08-05 07:27 | NUR ---
CHART CHECK COMPLETE.
--- NOTE | 2019-08-05 07:30 | NUR ---
PATIENT STATED HE WAS HAVING TROUBLE BREATHING, PLACED ON BI-PAP 18/, 35%. RN NOTIFIED.
[2019-08-05 08:00] VITALS: BP 160/80
--- NOTE | 2019-08-05 08:30 | NUR ---
Rag Cutting Machine Operator in to see patient. No new needs or request at this time. When medically stable, precert is received, and COVID has returned patient will be discharged to [facility]. poultry farmworker following.
--- NOTE | 2019-08-05 08:30 | NUR ---
0800 AM ASSESSMENT COMPLETE. PT STILL C/O SOB. PT WAS PLACED ON BI-PAP EARLIER. RESP ARE EASY AND REGULAR AT THIS TIME. DENIES OTHER COMPLAINTS. BED IN LOW LOCKED POSITION. CALL LIGHT IN REACH. WILL MONITOR.
--- NOTE | 2019-08-05 09:30 | NUR ---
PHYSICAL THERAPY Physical therapy evaluation attempted. Patient on BiPAP at this time. Will return at a later time to complete PT evaluation. Thank you. Naomi Butterfield,PT,DPT
--- NOTE | 2019-08-05 09:36 | NUR ---
Occupational therapy evaluation attempted. Patient on BiPAP at this time. Will return at a later time to complete OT evaluation. Thank you. Chanda Ramos OTR/L
--- NOTE | 2019-08-05 11:03 | NUR ---
PHYSICAL THERAPY Physical Therapy evaluation completed on 5E with full evaluation to follow. Low Complexity PT evaluation per chart review and evaluation, [id number]. Recommend physical therapy per plan of care and SNF upon discharge. Thank you for this referral. Naomi Butterfield,PT,DPT
[2019-08-05 12:00] VITALS: BP 132/57
--- NOTE | 2019-08-05 13:13 | NUR ---
Occupational Therapy evaluation completed on 5E with full evaluation to follow. Recommend occupational therapy per plan of care and SNF upon discharge. Thank you for this referral. Chanda Ramos OTR/L
--- NOTE | 2019-08-05 14:26 | NUR ---
Oracle Reports Developer in to see patient. He states he is not feeling well today. He said he was feeling better until that breathing treatment this morning. Discussed rehab and he remains agreeable to [facility] on discharge. log pond worker following.
--- NOTE | 2019-08-05 15:13 | NUR ---
PRECERT IS REQUIRED FOR RETURN TO [facility]. LUNCHROOM WORKER FAXED UPDATES AND ASKED FOR PRECERT TO BE STARTED.
--- NOTE | 2019-08-05 15:49 | NUR ---
MORPHINE GIVEN PER REQUEST FOR SOB. ELEVATED RESP. PT STATES IT HELPS TO SLOW HIS BREATHING DOWN. WILL MONITOR.
[2019-08-05 16:00] VITALS: BP 134/64
--- NOTE | 2019-08-05 19:10 | NUR ---
REPORT RECEIVED FROM TOSHA SANTIZO. PT LYING IN BED AT THIS TIME. O2 INTACT. CALL LIGHT IN REACH
[2019-08-05 20:00] VITALS: BP 143/60
--- NOTE | 2019-08-05 22:00 | NUR ---
PT LYING IN BED AT THIS TIME. NO S/S OF DISTRESS NOTED, CALL LIGHT IN REACH
--- NOTE | 2019-08-05 22:24 | NUR ---
NORCO GIVEN PER ORDER FOR COMPLAINTS OF GENERALIZED PAIN. WILL MONITOR.
--- NOTE | 2019-08-05 23:20 | NUR ---
NORCO APPEARS EFFECTIVE. PT LYING IN BED SLEEPING AT THIS TIME. CALL LIGHT IN REACH
[2019-08-06] VITALS: BP 144/84
--- NOTE | 2019-08-06 00:30 | NUR ---
PT SLEEPING AT THIS TIME. BIPAP IN PLACE, NO S/S OF DISTRESS NOTED. CALL LIGHT IN REACH
--- NOTE | 2019-08-06 01:11 | NUR ---
REMOVED PT FROM BIPAP PER HIS REQUEST. PLACED ON 4L NC. SpO2 97%
--- NOTE | 2019-08-06 03:00 | NUR ---
PT ASLEEP. O2 INTACT. RESPIRATIONS EASY AND UNLABORED. CALL LIGHT IN REACH
--- NOTE | 2019-08-06 05:20 | NUR ---
PT LYING IN BED WITH EYES CLOSED. O2 INTACT. CALL LIGHT IN REACH
[2019-08-06 08:00] VITALS: BP 130/54
--- NOTE | 2019-08-06 08:30 | NUR ---
Outpatient Facility Physical Therapist in to see patient. No new needs or request at this time. When medically stable and precert is received patient will be discharged to [facility]. COVID -. farmworker brooder farm following.
--- NOTE | 2019-08-06 08:32 | NUR ---
07:40 PT C/O OF SOB. REQUEST TO BE PLACED ON BIPAP. RESPS SOMEWHAT LABORED WITH SOME INTERCOSTAL RETRACTIONS. BIPAP INITIATED. PT STATED HIS BREATHING WAS BETTER. DA GIVEN VIA BIPAP 18/6 35%. RN AWARE. BBSs EQUAL, CLEAR AND DIMINISHED T/O. SPO2 97 RR 25 HR 86.
--- NOTE | 2019-08-06 08:45 | NUR ---
HEART RATE 138 A-FIB. SHORT OF BREATH WITH BI-PAP ON. TAKEN OFF BI-PAP AND PLACED ON 4L NASAL CANNULA. MEDICATED WITH TOPROL XL ORDERED
--- NOTE | 2019-08-06 10:05 | NUR ---
PHYSICAL THERAPY Patient seent this am 1:1 for therapy visit and was resting supine in bed upon therapist arrival. Patient identified by name / and presented with continuos O2-4L via NC recording resting SpO2 98%, HR 76. Patient reports bouts of SOB and transfers supine to sit EOB with MIN A, needing a few minutes to collect himself. Patient performed several sit to stand transfers, CGA, use of wh walker standing support. Patient tolerated approx 2 minutes static stand, demonstrating "slouched' standing posture and recording SpO2 84%, HR 90 bpm. Patient fatigues quickly and needed 8 minute seated rest for SpO2 to finally return to 90%. Patient also completed second sit to stand, tolerating 4 minutes static stand, recording SpO2 92%,HR 88 bpm, however in approx 1 minute seated rest dropped to SpO2 90%, HR 86 bpm. Patient returned to supine in bed, CGA and remained with call light, tray table and telephone. Will continue per POC as tolerated,total treatment time 14 minutes. Elvin Ramachandran, BUSINESS RELATIONSHIP MANAGER
--- NOTE | 2019-08-06 10:13 | NUR ---
OT NOTE Pt seen this date for 23 min 1:1 therapy session. Upon arrival pt sidelaying in bed asleep recieving 4LO2 via NC. Pt was identified by name and and agreeable to treatment. Pt completed bed mobility to seated at EOB w SBA. Pt stated he was experiencing chest pain with pt reporting "as a result of BiPap" which he rated at a 5/10 on a 0-10 pain scale. At rest seated at EOB SpO2 read 98% and heart rate 74bpm. Pt completed sit to stand w CGA and ww where he stood for 2 mins and stated he was experiencing mild dizziness which resolved after aprox 1 min. Pt then returned to bed level w ww and SBA where his SpO2 read 85% and heart rate 90bpm. Pt presented SOB resulting in education for breathing technique and proper posture to manage his oxygen levels w fair followthrough. Pt required 8 min rest break for recovery seated at EOB after which his SpO2 read 90% and heart rate 83bpm. Pt then completed sit to stand transfer w ww and CGA where he stood for 4 min w SpO2 level remaining 92%-93% and heart rate in the mid to high 80s bpm for entire stand time. Pt then returned to seated at EOB w ww and SBA. After 1 min rest break seated at EOB pts SpO2 read 90% and heart rate 80bpm. Pt then returned to sidelaying in bed w SBA. At end of session pt sidelaying in bed w 4LO2 via NC and call light in reach. Continue w current D/C plan to SNF. Gerri Westfall/ATILIO Pisano/V[place]
--- NOTE | 2019-08-06 10:50 | NUR ---
10:35PT ASSESSED FOR DA. PT CURRENTLY ON NC. PT STATES HE CAME OFF OF BIPAP APPROX 09:10 AM. PT REQUESTING TO GO ONTO BIPAP AT THIS TIME FOR DA ADMINISRTATION AND FOR A COUPLE OF HOURS. RESPS REGULAR AND UNOLABORED. PT PLAED ON BIPAP. SYSTEM CHECKED AND FX'ING.
[2019-08-06 12:00] VITALS: BP 119/52
--- NOTE | 2019-08-06 12:22 | NUR ---
PT TAKEN OFF OF BIPAP AT THIS TIME PER PT REQUEST. PT PLACED ON 4 L NC. RESPS REGULAR AND SLIGHTLY LABORED.
--- NOTE | 2019-08-06 14:05 | NUR ---
PRECERT IS RETURNED, PRECERT WILL BE GOOD UNTIL Friday. RN HOSPITALIST COORDINATOR LEEANNA IS AWARE.
[2019-08-06 16:00] VITALS: BP 126/62
--- NOTE | 2019-08-06 16:58 | NUR ---
OCCUPATIONAL THERAPY CO-SIGN I approve of the Occupational Therapy notes written above. Chanda Ramos OTR/L
--- NOTE | 2019-08-06 17:11 | NUR ---
16:00 PT PLACED ON BIPAP AT THIS TIME PER PT REQUEST FOR DA. RESPS REGULAR AND SLIGHTLY LABORED. SYSTEM CHECKED AND FX'ING. VITALS STABLE.
--- NOTE | 2019-08-06 19:10 | NUR ---
REPORT RECEIVED FROM BLANCO SANTIZO. PT LYING IN BED AT THIS TIME. VOICES NO COMPLAINTS. CALL LIGHT IN REACH
[2019-08-06 20:00] VITALS: BP 137/60
--- NOTE | 2019-08-06 22:30 | NUR ---
PT LYING IN BED, NO S/S OF DISTRESS NOTED. CALL LIGHT IN REACH
[2019-08-07] VITALS: BP 128/63
--- NOTE | 2019-08-07 01:00 | NUR ---
PT REQUESTING TO BE TAKEN OFF BIPA AT THIS TIME.
--- NOTE | 2019-08-07 03:00 | NUR ---
PT SLEEPING WITH O2 INTACT. NO S/S OF DISTRESS NOTED CALL LIGHT IN REACH
[2019-08-07 06:30] LABS: CREATININE 1.57 mg/dL (0.70-1.30); POTASSIUM 4.3 mmol/L (3.5-5.1)
[2019-08-07 08:00] VITALS: BP 92/54
--- NOTE | 2019-08-07 08:14 | NUR ---
MORPHINE FOR BACK/SIDE PAIN
--- NOTE | 2019-08-07 11:21 | NUR ---
PT. OFF BIPAP AT APPRX. [id number]
[2019-08-07 12:00] VITALS: BP 128/62
--- NOTE | 2019-08-07 15:39 | NUR ---
Pt. has requested to go on bipap for tx.'s today, pt. tolerates well.
--- NOTE | 2019-08-07 15:44 | NUR ---
ASSESSMENT COMPLETE. PT STATES NO COMPLAINTS AT THIS TIME. RESPIRATIONS RELAXED AND EASY. CALL LIGHT WITHIN REACH, WILL CONTINUE TO MONITOR
--- NOTE | 2019-08-07 15:49 | NUR ---
Shift chart check completed.
[2019-08-07 16:00] VITALS: BP 136/57
--- NOTE | 2019-08-07 19:21 | NUR ---
PLACED ON BIPA PER PATIENT REQUEST FOR THE DURATION OF THE BREATHING TREATMENT. REMOVING FROM MACHINE ONCE TREATMENT IS COMPLETE.
[2019-08-07 20:00] VITALS: BP 125/56
--- NOTE | 2019-08-07 20:19 | NUR ---
HR HAS BEEN FROM 100'S TO 120'S METOPROLOL GIVEN PER ORDER AT THIS TIME.
--- NOTE | 2019-08-07 20:45 | NUR ---
HR IS IN 70'S-90'S
--- NOTE | 2019-08-07 21:05 | NUR ---
CALLED DR. GUTIÉRREZ AND NOTIFIED HIM OF PATIENT HEART RATED FLUCTUATING FROM 70'S TO 120'S. PT. DOMENICO NO C/O VOICED.
[2019-08-08] VITALS: BP 134/70
--- NOTE | 2019-08-08 01:24 | NUR ---
24 HR chart check completed.
--- NOTE | 2019-08-08 04:43 | NUR ---
REMOVED BIPAP PER PT. REQUEST AND REAPPLIED O2 NC. REQUEST FOR PAIN MEDICATION.
--- NOTE | 2019-08-08 04:45 | NUR ---
WILLIAMCO GIVEN PER ORDER FOR PHANTOM PAIN PER PT.PAIN RATED "7" . SEE MAR
[2019-08-08 08:00] VITALS: BP 149/66
[2019-08-08] MEDS ORDERED: PREDNISONE10 MG PO (10:43)
[2019-08-08] MEDS ORDERED: DOXYCYCLINE100 M3 PO (10:49)
[2019-08-08] MEDS ORDERED: LEVAQUIN500 M2 PO (10:49)
--- NOTE | 2019-08-08 11:24 | NUR ---
[facility]
--- NOTE | 2019-08-08 12:55 | NUR ---
DISCHARGED TO [facility]
--- NOTE | 2019-08-09 07:33 | NUR ---
PHYSICAL THERAPY CO-SIGN I approve of the Physical Therapy notes written above. ANGY SANCHEZ PT, DPT
== END 2019-08-08 12:55 | disposition other institution (70) | DRG 871 ==
LOC: ED 22:44 → EDHOLD 08-03 00:35 → 5E 08-03 00:35
PROVIDERS: Emergency Medicine; Internal Medicine; Internal Medicine Critical Care Medicine; Student in an Organized Health Care Education/Training Program; ADMIT Internal Medicine
PROC: 5A09357 Assistance with Respiratory Ventilation, Less than 24 Consecutive Hours, Continuous Positive Airway Pressure (ICD-10-PCS; principal; 2019-08-02)
PROC: 5A09357 Assistance with Respiratory Ventilation, Less than 24 Consecutive Hours, Continuous Positive Airway Pressure (ICD-10-PCS; 2019-08-03)
PROC: 5A09357 Assistance with Respiratory Ventilation, Less than 24 Consecutive Hours, Continuous Positive Airway Pressure (ICD-10-PCS; 2019-08-05)
PROC: 5A09357 Assistance with Respiratory Ventilation, Less than 24 Consecutive Hours, Continuous Positive Airway Pressure (ICD-10-PCS; 2019-08-06)
PROC: 5A09357 Assistance with Respiratory Ventilation, Less than 24 Consecutive Hours, Continuous Positive Airway Pressure (ICD-10-PCS; 2019-08-07)
PROC: 5A09357 Assistance with Respiratory Ventilation, Less than 24 Consecutive Hours, Continuous Positive Airway Pressure (ICD-10-PCS; 2019-08-08)
DX: A41.9 Sepsis, unspecified organism (principal); J18.9 Pneumonia, unspecified organism; E41 Nutritional marasmus; J96.21 Acute and chronic respiratory failure with hypoxia; J96.22 Acute and chronic respiratory failure with hypercapnia; E43 Unspecified severe protein-calorie malnutrition; J44.1 Chronic obstructive pulmonary disease with (acute) exacerbation; J44.0 Chronic obstructive pulmonary disease with (acute) lower respiratory infection; I50.42 Chronic combined systolic (congestive) and diastolic (congestive) heart failure; I13.0 Hypertensive heart and chronic kidney disease with heart failure and stage 1 through stage 4 chronic kidney disease, or unspecified chronic kidney disease; D68.69 Other thrombophilia; E87.3 Alkalosis; I48.21 Permanent atrial fibrillation; N17.9 Acute kidney failure, unspecified; Z68.1 Body mass index [BMI] 19.9 or less, adult; I25.10 Atherosclerotic heart disease of native coronary artery without angina pectoris; K21.9 Gastro-esophageal reflux disease without esophagitis; I48.0 Paroxysmal atrial fibrillation; E78.5 Hyperlipidemia, unspecified; R65.20 Severe sepsis without septic shock; D53.9 Nutritional anemia, unspecified; N18.3 Chronic kidney disease, stage 3 (moderate); I73.9 Peripheral vascular disease, unspecified; R91.8 Other nonspecific abnormal finding of lung field; R73.9 Hyperglycemia, unspecified; D63.8 Anemia in other chronic diseases classified elsewhere; Z20.828 Contact with and (suspected) exposure to other viral communicable diseases; Z66 Do not resuscitate; Z51.5 Encounter for palliative care; Z82.0 Family history of epilepsy and other diseases of the nervous system; F17.210 Nicotine dependence, cigarettes, uncomplicated; Z79.01 Long term (current) use of anticoagulants; Z71.6 Tobacco abuse counseling

== ENCOUNTER → 2019-08-11 | Outpatient (CLI) | payer OTHER ==
[~2019-08-11] MED LIST changes: +COLACE100 MG PO; +DOXYCYCLINE100 M3 PO; +Ipratropium Brom3 ML INH; +LEVAQUIN500 M2 PO; +MIRTAZAPINE15 M2 PO; +OMNICEF300 MG PO; +PREDNISONE10 MG PO; +WIXELA 250-501 EACH INH
== END | disposition home or self-care (01) ==
LOC: CT 00:21
DX: J43.8 Other emphysema (principal); I25.10 Atherosclerotic heart disease of native coronary artery without angina pectoris; R91.1 Solitary pulmonary nodule; R91.8 Other nonspecific abnormal finding of lung field